=== PATIENT | female | born 1965 | race Hispanic/Latino ===

== ENCOUNTER → 2017-11-07 | Emergency (ER) | payer MEDICAID ==
[~2017-11-07] MED LIST: ASPIRIN PO ONE; LOVENOX SUB-Q SCH; NACL 0.9% 1000 ML 1,000 ML IV ONE
--- NOTE | 2017-11-07 20:58 | Emergency Department Report ---
ED Chest Pain HPI - General Stated Complaint: DIZZY Time Seen by Provider: 11/07/17 20:50 Source: patient, EMS Mode of arrival: Stretcher Limitations: No Limitations - History of Present Illness Initial Comments: She is a 51-year-old presents to emergency room with chest pain, shortness of breath and dizziness 2 hours. Patient states chest pain is left chest. Patient complains of shortness of breath that is worse with exertion. Patient states this chest pain and shortness of breath are better with rest and lying still. Patient was brought in by EMS and placed on oxygen O2 saturation her EMS was 95%. Has a past medical history of MR, diabetes and hypertension. Patient is compliant with medications. Patient states chest pain does not radiate. Patient denies fever, chills, diaphoresis, nausea, vomiting and abdominal pain. MD Complaint: chest pain, other (shortness of breath and dizziness) -: Sudden, hour(s) (2 hours ago) Onset: during rest, after eating Pain Location: substernal, left chest Pain Radiation: none Severity scale (0 -10): 6 Quality: aching, heaviness, pressure Consistency: constant Improves With: rest Worsens With: exertion, movement re: nausea, dyspnea, sense of impending doom Treatments Prior to Arrival: oxygen Aspirin use within the Past 7 Days: (1) Yes - Related Data On Oral Contraceptives: No Home Medications Medication Instructions Recorded Confirmed Last Taken Acetaminophen [Tylenol] 500 mg PO Q4HR PRN 03/09/15 03/09/15 Unknown Bismuth Subsalicylate 30 mg PO Q2H PRN 03/09/15 03/09/15 Unknown [Pepto-Bismol] Cyanocobalamin [Vitamin B-12] 1,000 mcg PO DAILY 03/09/15 03/09/15 Unknown Diclofenac Sodium [Pennsaid] 40 ml TP QID PRN 03/09/15 03/09/15 Unknown Loratadine [Claritin] 10 mg PO BID 03/09/15 03/09/15 Unknown Magnesium Hydroxide [Milk of 30 ml PO QDAY PRN 03/09/15 03/09/15 Unknown Magnesia] Mupirocin [Bactroban 2%] 1 applicatio TP BID 03/09/15 03/09/15 Unknown Phosphorated Carbo(Dext-Fruct) 15 ml PO Q6H PRN 03/09/15 03/09/15 Unknown [Emetrol Oral Solution] oxyCODONE /ACETAMINOPHEN [Percocet 1 tab PO Q4H PRN 03/09/15 03/09/15 Unknown 5/325] Allergies Allergy/AdvReac Type Severity Reaction Status Date / Time No Known Allergies Allergy Verified 03/09/15 13:54 Heart Score - HEART Score History: Slightly suspicious EKG: Normal Age: 45-65 Risk factors: 1-2 risk factors Troponin: < normal limit HEART Score: 2 ED Review of Systems ROS: Stated complaint: DIZZY Other details as noted in HPI Comment: All other systems reviewed and negative Constitutional: denies: chills, fever Eyes: denies: eye pain, eye discharge, vision change ENT: denies: ear pain, throat pain Respiratory: no symptoms reported, shortness of breath. denies: cough, wheezing Cardiovascular: as per HPI, chest pain Endocrine: no symptoms reported Gastrointestinal: denies: abdominal pain, nausea, diarrhea Genitourinary: denies: urgency, dysuria, discharge Musculoskeletal: denies: back pain, joint swelling, arthralgia Skin: denies: rash, lesions Neurological: vertigo. denies: headache, weakness, paresthesias Psychiatric: denies: anxiety, depression Hematological/Lymphatic: denies: easy bleeding, easy bruising ED Past Medical Hx - Past Medical History Previous Medical History?: Yes Hx Hypertension: Yes Hx Diabetes: Yes Hx Arthritis: Yes Additional medical history: Moderate Mental Retardation. Iron Deficiency/ anemia. Prader Willi. Intertrigo - Surgical History Past Surgical History?: Yes Hx Cholecystectomy: Yes - Family History Family history: hypertension - Social History Smoking Status: Never Smoker Substance Use Type: None - Medications Home Medications: Home Medications Medication Instructions Recorded Confirmed Last Taken Type Acetaminophen [Tylenol] 500 mg PO Q4HR PRN 03/09/15 03/09/15 Unknown History Bismuth Subsalicylate 30 mg PO Q2H PRN 03/09/15 03/09/15 Unknown History [Pepto-Bismol] Cyanocobalamin [Vitamin B-12] 1,000 mcg PO DAILY 03/09/15 03/09/15 Unknown History Diclofenac Sodium [Pennsaid] 40 ml TP QID PRN 03/09/15 03/09/15 Unknown History Loratadine [Claritin] 10 mg PO BID 03/09/15 03/09/15 Unknown History Magnesium Hydroxide [Milk of 30 ml PO QDAY PRN 03/09/15 03/09/15 Unknown History Magnesia] Mupirocin [Bactroban 2%] 1 applicatio TP BID 03/09/15 03/09/15 Unknown History Phosphorated Carbo(Dext-Fruct) 15 ml PO Q6H PRN 03/09/15 03/09/15 Unknown History [Emetrol Oral Solution] oxyCODONE /ACETAMINOPHEN [Percocet 1 tab PO Q4H PRN 03/09/15 03/09/15 Unknown History 5/325] ED Physical Exam - General Limitations: No Limitations General appearance: alert, in no apparent distress - Head Head exam: Present: atraumatic, normocephalic - Eye Eye exam: Present: normal appearance - ENT ENT exam: Present: mucous membranes moist - Neck Neck exam: Present: normal inspection - Respiratory Respiratory exam: Present: normal lung sounds bilaterally. Absent: respiratory distress - Cardiovascular Cardiovascular Exam: Present: regular rate, normal rhythm. Absent: systolic murmur, diastolic murmur, rubs, gallop - GI/Abdominal GI/Abdominal exam: Present: soft, normal bowel sounds - Extremities Exam Extremities exam: Present: normal inspection - Back Exam Back exam: Present: normal inspection - Neurological Exam Neurological exam: Present: alert, oriented X3 - Psychiatric Psychiatric exam: Present: normal affect, normal mood - Skin Skin exam: Present: warm, dry, intact, normal color. Absent: rash ED Course Vital Signs 11/07/17 21:23 Temperature 98.6 F Pulse Rate 72 Respiratory 18 Rate Blood Pressure 142/65 [Left] O2 Sat by Pulse 97 Oximetry - Reevaluation(s) Reevaluation #1: Patient states she is pain-free at this time. Patient appears to be resting comfortably in bed. We'll consult hospitalist for admission once all labs and x -rays are done. 11/07/17 22:21 SIMBA score - Simba Score Age > 65: (0) No Aspirin use within the Past 7 Days: (1) Yes 3 or more CAD Risk Factors: (0) No 2 or more Angina events in past 24 hrs: (0) No Known CAD with more than 50% Stenosis: (0) No Elevated Cardiac Markers: (0) No ST Deviation Greater than 0.5mm: (0) No SIMBA Score: 1 ED Medical Decision Making - Lab Data Result diagrams: 11/07/17 21:10 11/07/17 21:10 - EKG Data -: EKG Interpreted by Me EKG shows normal: sinus rhythm, axis, intervals, QRS complexes, ST-T waves Rate: normal - EKG Data Interpretation: no acute changes, normal EKG - Radiology Data Radiology results: image reviewed interpreted by me: no acute process - Medical Decision Making All labs discussed the patient and caregiver. Plan is to admit patient to the hospital to rule out ACS. Will consult Dr. aMrie, hospitalist for admission. - Differential Diagnosis cp, sob, dizzy, acs. pe. dehydration Critical care attestation.: If time is entered above; I have spent that time in minutes in the direct care of this critically ill patient, excluding procedure time. ED Disposition Clinical Impression: Shortness of breath, Chest pain, Dizziness, Hyperglycemia due to type 2 diabetes mellitus Disposition: 09 OP ADMIT IP TO THIS HOSP Is pt being admited?: Yes Does the pt Need Aspirin: No Condition: Serious Instructions: Diabetes Mellitus Type 2 in Adults (ED) Time of Disposition: 23:11
[2017-11-07 21:28] LABS: Basophils # (Auto) 0.1 K/mm3 (0.0-0.1); Basophils % (Auto) 0.6 % (0.0-1.8); Eosinophils # (Auto) 0.3 K/mm3 (0.0-0.4); Eosinophils % (Auto) 3.4 % (0.0-4.3); Hematocrit 42.8 % (30.3-42.9); Hemoglobin 13.8 gm/dl (10.1-14.3); Lymphocytes # (Auto) 1.9 K/mm3 (1.2-5.4); Mean Corpuscular HGB Conc 32 % (30-34); Mean Corpuscular Hemoglobin 29 pg (28-32); Mean Corpuscular Volume 88 fl (79-97); Monocytes # (Auto) 0.7 K/mm3 (0.0-0.8); Monocytes % (Auto) 9.2 % (0.0-7.3); Platelet Count 203 K/mm3 (140-440); Red Blood Count 4.86 M/mm3 (3.65-5.03); Red Cell Distribution Width 14.5 % (13.2-15.2)
[2017-11-07 21:36] LABS: Bilirubin,Urine NEG (Negative); Blood,Urine MOD (Negative); Color,Urine Yellow (Yellow); Mucus,Urine FEW /HPF; Nitrite,Urine NEG (Negative); Urobilinogen,Urine < 2.0 mg/dL (<2.0)
[2017-11-07 21:50] LABS: INR 0.87 (0.87-1.13); Partial Thromboplastin Time 24.9 Sec. (24.2-36.6)
[2017-11-07 21:56] LABS: Alanine Aminotransferase 19 units/L (7-56); Albumin 3.7 g/dL (3.9-5); BUN/Creatinine Ratio 35; Blood Urea Nitrogen 28 mg/dL (7-17); Calcium 9.1 mg/dL (8.4-10.2); Hemolysis Index 30
--- NOTE | 2017-11-07 23:07 | XRay Report ---
FINAL REPORT PROCEDURE: XR CHEST 1V AP TECHNIQUE: Chest radiograph anteroposterior view. CPT 20896 HISTORY: Chest Pain COMPARISON: No prior studies are available for comparison. FINDINGS: Heart: Cardiac size is upper limit of normal. Mediastinum/Vessels: Normal. Lungs/Pleural space: Normal. Bony thorax: No acute osseous abnormality. Life support devices: None. IMPRESSION: No acute cardiopulmonary abnormality.
--- NOTE | 2017-11-07 23:54 | History and Physical Report ---
History of Present Illness Date of examination: 11/07/17 History of present illness: 51-year-old woman history of hypertension, diabetes, mental retardation, prader willi syndrome was brought to the emergency room because she felt dizzy and was diaphoretic. She complained of epigastric pain with cough, her price analyst states she did not have any chest pain. She is unable to give details about chest pain. Review of system is very difficult to obtain PAST MEDICAL HISTORY: Hypertension, diabetes, mental retardation,prader willi PAST SURGICAL HISTORY: Cholecystectomy SOCIAL HISTORY: No alcohol, tobacco, drugs FAMILY HISTORY: Hypertension Medications and Allergies Allergies Allergy/AdvReac Type Severity Reaction Status Date / Time No Known Allergies Allergy Verified 03/09/15 13:54 Home Medications Medication Instructions Recorded Confirmed Last Taken Type Acetaminophen [Tylenol] 500 mg PO Q4HR PRN 03/09/15 03/09/15 Unknown History Bismuth Subsalicylate 30 mg PO Q2H PRN 03/09/15 03/09/15 Unknown History [Pepto-Bismol] Cyanocobalamin [Vitamin B-12] 1,000 mcg PO DAILY 03/09/15 03/09/15 Unknown History Diclofenac Sodium [Pennsaid] 40 ml TP QID PRN 03/09/15 03/09/15 Unknown History Loratadine [Claritin] 10 mg PO BID 03/09/15 03/09/15 Unknown History Magnesium Hydroxide [Milk of 30 ml PO QDAY PRN 03/09/15 03/09/15 Unknown History Magnesia] Mupirocin [Bactroban 2%] 1 applicatio TP BID 03/09/15 03/09/15 Unknown History Phosphorated Carbo(Dext-Fruct) 15 ml PO Q6H PRN 03/09/15 03/09/15 Unknown History [Emetrol Oral Solution] oxyCODONE /ACETAMINOPHEN [Percocet 1 tab PO Q4H PRN 03/09/15 03/09/15 Unknown History 5/325] Exam - Physical Exam Narrative exam: Gen. appearance: Patient lying in bed, no apparent distress HEENT: Normocephalic, atraumatic, pupils equally round and reactive to light, extraocular movement intact, and no sclericterus,. No JVD or thyromegaly or nodule,neck supple, no carotid bruit ,mucous membranes moist, no exudate or erythema Heart: S1, S2, regular rate and rhythm Lungs: Clear to auscultation bilaterally, breathing comfortable Abdomen: Positive bowel sounds, nontender, nondistended, no organomegaly Extremity: No edema, cyanosis, clubbing Skin: No rash, nodules, warm, dry Neuro: Oriented 3, cranial nerves II-12 intact, speech is fluent, motor and sensory intact - Constitutional Vitals: Temp Pulse Resp BP Pulse Ox 98.6 F 72 18 142/65 97 11/07/17 21:23 11/07/17 21:23 11/07/17 21:23 11/07/17 21:23 11/07/17 21:23 Results - Labs CBC & Chem 7: 11/07/17 21:10 11/07/17 21:10 Labs: Abnormal lab results 11/07/17 11/07/17 11/07/17 Range/Units 21:10 21:10 21:25 [place] % (Auto) 9.2 H (0.0-7.3) % Chloride 96.3 L (98-107) mmol/L BUN 28 H (7-17) mg/dL Glucose 164 H (65-100) mg/dL Albumin 3.7 L (3.9-5) g/dL Urine WBC (Auto) 28.0 H (0.0-6.0) /HPF - Imaging and Cardiology EKG: image reviewed Chest x-ray: image reviewed Assessment and Plan Assessment Chest pain Hypertension Diabetes Mental retardation Prader willi syndrome Plan Admit to medicine Check cardiac enzymes, consult cardiology Check fingersticks and initiate insulin sliding scale DVT prophylaxis
[2017-11-07 23:57] VITALS: BP 140/67
--- NOTE | 2017-11-08 06:02 | Event Note ---
Date: 11/08/17 Patient left AMA with family. Risks and benefits explained
== END | disposition admitted as inpatient to this hospital (09) ==
LOC: ED 20:41
DX: R07.9 Chest pain, unspecified (principal); E11.65 Type 2 diabetes mellitus with hyperglycemia; R42 Dizziness and giddiness; R06.02 Shortness of breath; D57.00 Hb-SS disease with crisis, unspecified
CPT/HCPCS: 36415; 71045; 80053; 81001; 84484; 84703; 85025; 85379; 85610; 85730; 93005; 93010; 96360; 99285; J7030

== ENCOUNTER 2017-11-08 11:45 | Emergency (ER) | payer MEDICAID ==
[2017-11-08 12:23] VITALS: BP 146/81
[2017-11-08 14:36] LABS: Basophils % (Auto) 0.5 % (0.0-1.8); Eosinophils # (Auto) 0.2 K/mm3 (0.0-0.4); Eosinophils % (Auto) 3.2 % (0.0-4.3); Hematocrit 38.2 % (30.3-42.9); Hemoglobin 12.5 gm/dl (10.1-14.3); Lymphocytes # (Auto) 2.8 K/mm3 (1.2-5.4); Lymphocytes % (Auto) 42.7 % (13.4-35.0); Mean Corpuscular HGB Conc 33 % (30-34); Mean Corpuscular Hemoglobin 28 pg (28-32); Mean Corpuscular Volume 86 fl (79-97); Monocytes # (Auto) 0.6 K/mm3 (0.0-0.8); Monocytes % (Auto) 9.7 % (0.0-7.3); Platelet Count 197 K/mm3 (140-440); Red Blood Count 4.42 M/mm3 (3.65-5.03); Red Cell Distribution Width 14.1 % (13.2-15.2)
[2017-11-08 14:47] LABS: BUN/Creatinine Ratio 36; Blood Urea Nitrogen 18 mg/dL (7-17); Hemolysis Index 5
--- NOTE | 2017-11-08 17:45 | Emergency Department Report ---
ED Recheck HPI - General Chief Complaint: Medical Clearance Stated Complaint: HEART FLUTTER Time Seen by Provider: 11/08/17 14:20 Source: patient (here with caregiver) Mode of arrival: Ambulatory Limitations: Physical Limitation (patient walks with rolling walker) - History of Present Illness Initial Comments: Patient was brought to facility for medical clearance to go back to care home. She was here yesterday and was evaluated and treated and caregiver report that patient did not have anything to say that she is okay to return to care home. Patient denies any pain. She says she feels fine. Denies any chest pain , cough, shortness of breath abdominal back pain. She denies any fever or chills. Denies any headache. Pain is 0 out of 10. Complaint: other (here for medical clearance) Initial Visit For: other (low blood pressure) Returns Today for: other (she here to be medically cleared and needs paperwork in order for her to go back to care home in) Symptoms Since Prior Visit: no new symptoms Context: other (ear for medical clearance) Associated Symptoms: none Treatments Prior to Arrival: other (none) - Related Data Home Medications Medication Instructions Recorded Confirmed Last Taken Acetaminophen [Tylenol] 500 mg PO Q4HR PRN 03/09/15 03/09/15 Unknown Bismuth Subsalicylate 30 mg PO Q2H PRN 03/09/15 03/09/15 Unknown [Pepto-Bismol] Cyanocobalamin [Vitamin B-12] 1,000 mcg PO DAILY 03/09/15 03/09/15 Unknown Diclofenac Sodium [Pennsaid] 40 ml TP QID PRN 03/09/15 03/09/15 Unknown Loratadine [Claritin] 10 mg PO BID 03/09/15 03/09/15 Unknown Magnesium Hydroxide [Milk of 30 ml PO QDAY PRN 03/09/15 03/09/15 Unknown Magnesia] Mupirocin [Bactroban 2%] 1 applicatio TP BID 03/09/15 03/09/15 Unknown Phosphorated Carbo(Dext-Fruct) 15 ml PO Q6H PRN 03/09/15 03/09/15 Unknown [Emetrol Oral Solution] oxyCODONE /ACETAMINOPHEN [Percocet 1 tab PO Q4H PRN 06/16/15 06/16/15 Unknown 5/325] Allergies Allergy/AdvReac Type Severity Reaction Status Date / Time No Known Allergies Allergy Verified 03/09/15 13:54 ED Review of Systems ROS: Stated complaint: HEART FLUTTER Other details as noted in HPI Comment: All other systems reviewed and negative Constitutional: no symptoms reported Eyes: denies: eye pain, eye discharge, vision change ENT: denies: ear pain, throat pain, hearing loss, epistaxis, congestion Respiratory: no symptoms reported Cardiovascular: denies: chest pain, palpitations, dyspnea on exertion, edema, syncope, paroxysmal nocturnal dyspnea Gastrointestinal: denies: abdominal pain, nausea, vomiting, diarrhea, constipation, hematemesis, melena, hematochezia Genitourinary: denies: urgency, dysuria, frequency, hematuria, discharge, abnormal menses, dyspareunia Musculoskeletal: denies: back pain, joint swelling, arthralgia, myalgia Skin: denies: rash Neurological: denies: headache Psychiatric: denies: anxiety ED Past Medical Hx - Past Medical History Previous Medical History?: Yes Hx Hypertension: Yes Hx Diabetes: Yes Hx Arthritis: Yes Additional medical history: Moderate Mental Retardation. Iron Deficiency/ anemia. Prader Willi. Intertrigo - Surgical History Past Surgical History?: Yes Hx Cholecystectomy: Yes - Family History Family history: no significant - Social History Smoking Status: Never Smoker Substance Use Type: None - Medications Home Medications: Home Medications Medication Instructions Recorded Confirmed Last Taken Type Acetaminophen [Tylenol] 500 mg PO Q4HR PRN 03/09/15 03/09/15 Unknown History Bismuth Subsalicylate 30 mg PO Q2H PRN 03/09/15 03/09/15 Unknown History [Pepto-Bismol] Cyanocobalamin [Vitamin B-12] 1,000 mcg PO DAILY 03/09/15 03/09/15 Unknown History Diclofenac Sodium [Pennsaid] 40 ml TP QID PRN 03/09/15 03/09/15 Unknown History Loratadine [Claritin] 10 mg PO BID 03/09/15 03/09/15 Unknown History Magnesium Hydroxide [Milk of 30 ml PO QDAY PRN 03/09/15 03/09/15 Unknown History Magnesia] Mupirocin [Bactroban 2%] 1 applicatio TP BID 03/09/15 03/09/15 Unknown History Phosphorated Carbo(Dext-Fruct) 15 ml PO Q6H PRN 03/09/15 03/09/15 Unknown History [Emetrol Oral Solution] oxyCODONE /ACETAMINOPHEN [Percocet 1 tab PO Q4H PRN 03/09/15 03/09/15 Unknown History 5/325] ED Physical Exam - General Limitations: Other General appearance: alert, in no apparent distress - Head Head exam: Present: atraumatic, normocephalic, normal inspection - Eye Eye exam: Present: normal appearance, PERRL, EOMI. Absent: nystagmus, periorbital swelling, periorbital tenderness Pupils: Present: normal accommodation - ENT ENT exam: Present: normal exam, normal orophraynx, mucous membranes moist - Neck Neck exam: Present: normal inspection, full ROM. Absent: tenderness, meningismus, lymphadenopathy, thyromegaly - Respiratory Respiratory exam: Present: normal lung sounds bilaterally. Absent: respiratory distress, chest wall tenderness, accessory muscle use - Cardiovascular Cardiovascular Exam: Present: regular rate, normal rhythm, normal heart sounds. Absent: systolic murmur, diastolic murmur - GI/Abdominal GI/Abdominal exam: Present: soft, normal bowel sounds. Absent: distended, tenderness, guarding, rebound, rigid, organomegaly, mass, bruit, pulsatile mass , hernia - Extremities Exam Extremities exam: Present: normal inspection, full ROM, normal capillary refill , other. Absent: tenderness, pedal edema, joint swelling, calf tenderness - Back Exam Back exam: Present: normal inspection, full ROM. Absent: tenderness, CVA tenderness (R), CVA tenderness (L), muscle spasm, paraspinal tenderness, vertebral tenderness, rash noted - Neurological Exam Neurological exam: Present: alert, oriented X3, normal gait, reflexes normal. Absent: motor sensory deficit - Psychiatric Psychiatric exam: Present: normal affect, normal mood - Skin Skin exam: Present: warm, dry, intact, normal color. Absent: rash ED Course Vital Signs 11/08/17 12:16 Temperature 97.3 F L Pulse Rate 58 L Respiratory 18 Rate Blood Pressure 146/81 O2 Sat by Pulse 96 Oximetry - Reevaluation(s) Reevaluation #1: 11/08/17 17:54 stable throughout ED course ED Recheck MDM - Medical Decision Making ED course: Patient here with caregiver who reports that they were here yesterday and told that patient was supposed to be admitted but was sent home and patient did not have any clearance to come back to care home. Caregiver reported the patient is here to have clearance. Patient reports that she is fine and physical findings is normal. Patient is stable and cleared to return to care home. Critical care attestation.: If time is entered above; I have spent that time in minutes in the direct care of this critically ill patient, excluding procedure time. ED Disposition Clinical Impression: Normal exam Disposition: DC-01 TO HOME OR SELFCARE Is pt being admited?: No Does the pt Need Aspirin: No Condition: Stable Instructions: Normal Exam (ED) Additional Instructions: Patient is medical cleared to go back to care home. Her vital signs are stable and she is in no distress. Pt to follow up with her primary care physician on 11/12/2017 Referrals: FABIAN ROSALES MD [Primary Care Provider] - 11/12/17 Forms: Accompanied Note
== END 2017-11-08 18:15 | disposition home or self-care (01) ==
LOC: ED 11:45
DX: Z00.00 Encounter for general adult medical examination without abnormal findings (principal); I10 Essential (primary) hypertension; E11.9 Type 2 diabetes mellitus without complications; M19.90 Unspecified osteoarthritis, unspecified site; Z90.49 Acquired absence of other specified parts of digestive tract; Z86.2 Personal history of diseases of the blood and blood-forming organs and certain disorders involving the immune mechanism; Z79.899 Other long term (current) drug therapy
CPT/HCPCS: 36415; 80048; 85025; 99283; G0480; 80320